=== PATIENT | female | born 1995 | race Two or more races ===

== ENCOUNTER 2024-10-08 22:11 | Emergency (ER) | payer MEDICAID, SELFPAY ==
[2024-10-08 22:15] VITALS: BMI 31.1
[2024-10-08 22:59] VITALS: BP 132/85; PULSE 114; RESP 20; TEMP 37.7; O2SAT 98
--- NOTE | 2024-10-08 23:08 | XR_ITS ---
Examination: CT abdomen with intravenous contrast CT pelvis with intravenous contrast 2-D coronal reconstructions 2-D sagittal reconstructions Date and time of exam:October 09, 2024 0135 hours INDICATIONS: Lower abdominal pain beginning 12 days ago. CTDI: vol (mGy) 9.20/7 DLP: (mGycm) 518 Technique: Multiple axial sections of the abdomen and pelvis have been obtained. 64 slice high-resolution scanner used. 3 mm axial sections have been obtained, post intravenous injection 60 cc [id number] 2-D sagittal, coronal reconstructions obtained. Low dose protocols were performed. One or more of the following dose reduction techniques were used; automated exposure control, adjustment of the mA and/or KV according to patient size, use of iterative reconstruction technique. Findings: Severe diffuse fatty infiltration throughout the liver Left adrenal nodule 36 mm No pancreatic mass No gallstones No bowel obstruction Appendix is mildly thickened without periappendiceal inflammatory change Anteverted uterus Tubular structure in the left abdomen 4 by 2 cm which could represent pyosalpinx versus abscess Urinary bladder intact. IMPRESSION: Indeterminate left adrenal nodule, recommend MRI abdomen follow-up pre and postcontrast adrenal gland protocol Appendix is mildly thickened without periappendiceal inflammatory change Findings suspicious for left hydrosalpinx, recommend pelvic sonography follow-up
--- NOTE | 2024-10-08 23:09 | PD.EDRME ---
Rapid Medical Screening Exam RME Arrival date/time: 10/08/24 22:11 29 year old female present to ED for c/o of abd pain for 12 days I have greeted and performed a focused initial assessment of this patient. A comprehensive ED assessment and evaluation of the patient, analysis of all test results, and completion of the medical decision making process will be conducted by additional ED providers. Chief Complaint: Abdominal Pain Time Seen by Provider: 10/08/24 22:28 Vital signs: Vital Signs Temperature 99.8 F 10/08/24 22:59 Pulse Rate 114 H 10/08/24 22:59 Respiratory Rate 20 10/08/24 22:59 Blood Pressure 132/85 H 10/08/24 22:59 Pulse Oximetry (%) 98 10/08/24 22:59 Oxygen Delivery Method Room Air 10/08/24 22:59
[2024-10-08 23:41] LABS: Basophils # (Auto) 0.1 Thou/mm3 (0.0-0.2); Basophils % (Auto) 0 % (0-2.5); Eosinophils # (Auto) 0.1 Thou/mm3 (0.0-0.5); Eosinophils % (Auto) 0 % (0-10); Hematocrit 38.7 % (36.0-46.0); Hemoglobin 13.1 g/dL (12.0-16.0); Immature Granulocytes % (Auto) 0 % (0-0); Immature Granulocytes Auto 0.06 Thou/mm3 (0.00-0.00); Lymphocytes # (Auto) 2.3 Thou/mm3 (1.0-4.8); Lymphocytes % (Auto) 12 % (10-50); Mean Corpuscular HGB Conc 33.9 g/dl (31.0-37.0); Mean Corpuscular Volume 92 fL (80-100); Monocytes # (Auto) 1.1 Thou/mm3 (0.0-0.8); Monocytes % (Auto) 6 % (0-12); Neutrophils # (Auto) 15.9 Thou/mm3 (1.8-7.7); Neutrophils % (Auto) 82 % (37-80); Nucleated Red Blood Cell % 0 /100 WBC (0); Platelet Count 303 Thou/mm3 (140-440); RDW Standard Deviation 44.4 fL (36.4-46.3); Red Blood Count 4.22 Miln/mm3 (4.00-5.20); White Blood Count 19.4 Thou/mm3 (3.6-11.0)
[2024-10-08 23:57] LABS: Lactate (Lactic Acid) 1.7 mMol/L (0.4-2.0)
[2024-10-09] LABS: Collection Type, Urine Voided
[2024-10-09 00:07] LABS: Alanine Aminotransferase 85 U/L (10-49); Albumin, Serum 5.1 gm/dL (3.5-5.0); Albumin/Globulin Ratio 1.3 (1.2-2.2); Alkaline Phosphatase 61 U/L (46-116); Anion Gap 10 (7-16); Aspartate Amino Transferase 49 U/L (0-34); BUN/Creatinine Ratio 14 Ratio (12-20); Bilirubin,Total 0.8 mg/dL (0.3-1.2); Blood Urea Nitrogen 10 mg/dL (9-23); Calcium 10.4 mg/dL (8.3-10.6); Calcium (Corrected) 10.4 mg/dL (8.5-10.1); Carbon Dioxide 25.2 mMol/L (20.0-31.0); Chloride 101 mMol/L (98-107); Creatinine (Component) 0.7 mg/dL (0.6-1.3); Globulin 3.8 gm/dL (2.3-3.5); Glucose 128 mg/dL (74-106); Lipase 34 U/L (12-53); Osmolality,Calculated 272 (275-295); Potassium 4.1 mMol/L (3.4-5.1); Sodium 136 mMol/L (136-145); Total Protein 8.9 gm/dL (5.7-8.2); eGFR > 60 See Note
[2024-10-09 00:09] LABS: HCG,Qualitative Serum Negative
[2024-10-09 00:11] LABS: Bacteria,Urine Rare; Bilirubin,Urine Negative (Negative); Blood,Urine Negative (Negative); Clarity,Urine Turbid (Clear/Hazy); Color,Urine Lt-Yellow (Lt Yel-Yel); Glucose, Urine Negative (Negative); Ketones,Urine Negative (Negative); Leukocyte Esterase,Urine Positive (Negative); Nitrite,Urine Negative (Negative); PH,Urine 6.5 (5.0-7.0); Protein,Urine Negative (Neg - Trace); RBC,Urine 2 /hpf (0-3); Specific Gravity,Urine 1.007 (1.001-1.035); Squamous Epithelial Cell,Urine 4 /hpf (0-5); Urobilinogen,Urine Negative mg/dL (0.0-1.0); WBC,Urine 35 /hpf (0-5)
--- NOTE | 2024-10-09 00:23 | PD.EDABDPN ---
ED Abdominal Pain RME/HPI General Chief Complaint: Abdominal Pain Stated complaint: ABD PAIN CONSTIPATION Time seen by provider: 10/08/24 22:28 Arrival date/time: 10/08/24 22:11 Source: patient Mode of arrival: ambulatory Limitations: no limitations RME / HPI RME / HPI narrative: 10/08/24 22:11 29 year old female present to ED for c/o of abd pain for 12 days I have greeted and performed a focused initial assessment of this patient. A comprehensive ED assessment and evaluation of the patient, analysis of all test results, and completion of the medical decision making process will be conducted by additional ED providers. Dr. Cowan?s Main ED Evaluation: 29-year-old female presents with complaints of constipation and abdominal pain. She reports no bowel movements or flatulence for approximately 12 days. Three weeks ago, she experienced sharp right-sided abdominal pain that lasted throughout the weekend and resolved about a week later without intervention. For the past 3 days, she has had new left-sided abdominal pain. She also reports suprapubic discomfort during urination. She is currently 3 days late on her menstrual period, which is usually regular. She is uncertain if is a possibility. No history of heavy lifting. She denies lower extremity swelling. Notably, she still has her appendix. Family history is significant for diabetes mellitus in her mother. Related Data Previous Rx's ?Medication ?Instructions ?Recorded cephalexin 500 mg capsule 500 mg PO TID #21 caps 10/09/24 Allergies Allergy/AdvReac Type Severity Reaction Status Date / Time No Known Allergies Allergy Verified 10/08/24 22:20 Review of Systems Review of Systems Systems Reviewed: All systems reviewed, normal except as documented Past Medical History Past Medical History CARDIAC: Negative Cardiac Disorders RESPIRATORY: Negative Asthma GENITOURINARY: Negative Renal Disease ENDOCRINE: Negative Diabetes Mellitus Type 2 HEMATOLOGIC: Negative Sickle Cell Disease Social History SMOKING STATUS: Never smoker ED Exam Narrative Physical exam: Rectal Exam: Some left-sided fullness noted. No discharge. No cervical motion tenderness. No palpable stool in the rectal vault. Abdominal Exam: Abdomen distended. Tenderness noted in the left lower quadrant and suprapubic region, not localized to the left McBurney?s point. No rebound tenderness. No signs of cellulitis. Negative Tran?s sign. No CVA tenderness. General Limitations: Present no limitations General appearance: Present alert and in no apparent distress Head Head exam: Present atraumatic Eye Eye exam: Present normal appearance, PERRL and EOMI ENT ENT exam: Present normal exam, normal oropharynx and mucous membranes moist Neck Neck exam: Present normal inspection, full ROM and trachea midline Chest Chest inspection: Present normal inspection and symmetric chest wall rise Respiratory Respiratory exam: Present normal lung sounds bilaterally Cardiovascular Cardiovascular exam: Present regular rate, normal rhythm and normal heart sounds Extremities Exam Extremities exam: Present normal inspection and full ROM Back Exam Back exam: Present normal inspection and full ROM Neurological Exam Neurological exam: Present alert, oriented X3 and CN II-XII intact Psychiatric Psychiatric exam: Present normal affect and normal mood Skin Skin exam: Present warm, dry, intact and normal color Course Course Course Narrative: 0329 Sepsis alert initiated. Orders made at this time are congruent with ED Adult Sepsis Order List. Re-evaluation is to be completed. 0400 Sepsis reassessment performed consisting of lab review, vitals, physical exam including auscultation of heart, lungs, and visual evaluation of capillary refills, mucosal membranes and extremities. Quality Measures Current suspected stage: sepsis Possible source: unknown Blood cultures ordered: yes Antibiotic ordered: Yes Pertinent labs: 10/08/24 10/09/24 23:30 04:39 Lactic Acid 1.7 mMol/L 0.7 mMol/L (0.4-2.0) (0.4-2.0) sepsis Orders Category Date Time Status CT Screening NOW Care 10/08/24 23:08 Active IV [Insert IV] NOW Care 10/09/24 00:[address] abdomen pelvis w con Stat Exams 10/08/24 23:08 Taken US pelvic complete Stat Exams 10/09/24 02:09 Taken Blood Culture (Lab) Stat Lab 10/08/24 23:50 Received CBC Stat Lab 10/08/24 23:30 Completed CMP [Comprehensive Metabolic Panel] Stat Lab 10/08/24 23:30 Completed HCG,Qualitative Serum Stat Lab 10/08/24 23:30 Completed Lactic Acid [Lactate (Lactic Acid)] Stat Lab 10/08/24 23:30 Completed Lactic Acid [Lactate (Lactic Acid)] Stat Lab 10/09/24 04:39 Completed Lipase Stat Lab 10/08/24 23:30 Completed UA [Urinalysis] Stat Lab 10/08/24 23:52 Completed Piper/Tazo 3.375 gm Premix [Zosyn] Med 10/08/24 23:51 Discontinued 3.375 gm in 50 ml IV X1 Sodium Chloride 0.9% 1000 ml [Ns] 1,000 ml Med 10/09/24 01:05 Discontinued IV 999 mls/hr cefTRIAXone/D5w 1gm IV premix [Rocephin/D5w 1gm IV Med 10/09/24 04:17 Discontinued premix] 1 gm in 50 ml IV X1 Vital Signs Vital signs: Vital Signs Temperature 99.8 F 10/08/24 22:59 Pulse Rate 114 H 10/08/24 22:59 Respiratory Rate 20 10/08/24 22:59 Blood Pressure 132/85 H 10/08/24 22:59 Pulse Oximetry (%) 98 10/08/24 22:59 Oxygen Delivery Method Room Air 10/08/24 22:59 Abdominal Pain MDM MDM Narrative MDM Narrative:: 29-year-old female presents with 12-day history of constipation and new-onset left lower abdominal pain with suprapubic discomfort on urination. She reports a prior episode of right-sided abdominal pain 3 weeks ago that resolved a week later. She is 3 days late on her menstrual cycle, which is typically regular, and status is unknown. Differential includes constipation-related abdominal discomfort, SBO, ileus, UTI, pyelonephritis, infected stone, tumor. 0418 -- Patient denies discharge and declines a pelvic exam. Will proceed with treatment for UTI. Plan to repeat lactic acid. Patient offered admission but states she would like to go home and will return in 24 hours for re-check. Waiting for pelvis ultrasound results. Scribe Attestation: Tay Redding, am scribing for and in the presence of Dr. Cowan. Provider Notation: Although this document has been carefully reviewed, there may still be some phonetic and other typographical errors. These errors are purely grammatical due to imperfections in the software program and should not be construed in any way to compromise the substance of the patient's medical care during this visit. Patient data External records reviewed:: [facility] previous records Clinical information provided by:: patient Social determinants that could affect healthcare access:: none Patient has the following chronic illnesses:: n/a How is presenting disease/condition affected by chronic disease/condition?: no chronic disease Evaluation data The following diagnostics were reviewed and interpreted by me:: lab results and radiology exam(s) Lab and/or radiology exams considered but not ordered:: n/a Interpretation Summary: I personally reviewed the radiology data and agree with the radiologist's interpretation. CT scan of the abdomen and pelvis with intravenous contrast October 09, 2024 0154 hours Clinical History: Lower abd pain for 12 days No prior study is available for comparison. Findings: The lung bases are clear. Fatty infiltration of the liver is noted. There is a 3 x 1.7 cm left adrenal indeterminate nodule. The gallbladder, pancreas, spleen and kidneys are unremarkable. Moderate amount of fecal material is present in the colon. There are a few fluid filled small bowel loops. No evidence of small bowel dilatation. The urinary bladder is unremarkable. There are tubular cystic structures in the adnexae bilaterally with surrounding fat stranding and possible left tuboovarian abscess measuring 4 x 2 cm. There is reactive wall thickening of the sigmoid and tip of appendix.There is no free air. There is a trace free fluid in the pelvis. There are multiple prominent mesenteric and retroperitoneal lymph nodes. The osseous structures are unremarkable. Impression: Findings suggestive of pelvic inflammatory disease with bilateral hydro/pyosalpinx and possible left tuboovarian abscess. Recommend further evaluation. Reactive sigmoid colitis and thickening of the tip of the appendix. Recommend clinical correlation and follow-up. Left indeterminate adrenal nodule Medications / Prescriptions Medications or Prescriptions considered but not ordered:: n/a Medication administrations:: Medication Administration History Discontinued Medications Piperacillin/Tazobactam/Dextrose (Zosyn) 3.375 gm in 50 mls @ 100 mls/hr IV X1 ONE Stop: 10/09/24 00:20 Last Infusion: 10/09/24 01:16 Dose: Infused Documented By: Admin: 10/09/24 00:43 Dose: 100 mls/hr Documented By: CVL Sodium Chloride (Ns) 1,000 mls @ 999 mls/hr IV .Q1H1M ONE Stop: 10/09/24 02:05 Last Infusion: 10/09/24 02:25 Dose: Infused Documented By: Admin: 10/09/24 01:17 Dose: 999 mls/hr Documented By: CVL Ceftriaxone Sodium/Dextrose (Rocephin/D5w 1gm Iv Premix) 1 gm in 50 mls @ 100 mls/hr IV X1 ONE Stop: 10/09/24 04:46 Last Infusion: 10/09/24 05:04 Dose: Infused Documented By: Admin: 10/09/24 04:33 Dose: 100 mls/hr Documented By: LB as above Consultations Consultation(s) initiated? (list below): No Diagnosis Differential diagnosis abdominal pain: other (see MDM) Most likely diagnosis given after review of the tests above:: see clinical impression below Admission Indicated Admission indicated?: indicated Explain why admission is indicated or not indicated:: see MDM Admission Request Was there a request for admission?: No Disposition Plan Disposition Plan: Discharge Discharge Attestation Discharge Attestation: The patient and all family members were given an opportunity to ask questions and understood the discharge instructions. Discharge instructions specifically effects, indications for sooner follow up or return to the emergency department, and the expected course of current diagnosis. Patient condition: Stable Critical Care Time Critical Care Time Critical Care Time: Yes Total Critical Care Time (min.): 45 Attestation: The high probability of sudden, clinically significant deterioration in the patient?s condition required the highest level of my preparedness to intervene urgently. ? The services I provided to this patient were to treat and/or prevent clinically significant deterioration. Services included the following: chart data review, reviewing nursing notes and/or old charts, documentation time, benefits sales consultant collaboration regarding findings and treatment options, medication orders and management, direct patient care, vital sign assessments and ordering, interpreting and reviewing diagnostic studies and lab tests. ? Aggregate critical care time includes only time during which I was engaged in work directly related to the patient?s care, as described above, whether at bedside or elsewhere in the Emergency Department. It did not include time spent performing other reported procedures or the services of residents, students, nurses or physician assistants. Discharge Plan Plan Patient Disposition: HOME (Self Care) Patient condition on transfer: Stable Prescriptions/Referrals Prescriptions/Med Rec: New cephalexin 500 mg capsule 500 mg PO TID Qty: 21 0RF Referrals: No Primary/Family,Physician [Primary Care Provider] - In 1 week Problem List Clinical Impression: Sepsis, UTI (urinary tract infection) Patient/Caregiver Discharge Instructions Education Materials: Urinary Tract Infections in Women Additional Instructions: 1. Take antibiotics as prescribed. If you are on control pills you will have to use alternate form of protection for the next 30 days. 2. We have offered you admission but you would like to go home. 3 . Return to the emergency department in 24 hours for recheck to see how you are doing. Return sooner before your recheck if you are having fevers, increasing pain, you cannot tolerate liquids, or any other concerns. 4. You can take [id number] Tylenol 650 mg 3 times a day and/or Motrin 600 mg 3 times a day with food. Print Language: [place] Stand Alone Forms: Kendra Award Info., Patient Portal Info Letter
[2024-10-09] MEDS: PIPER/TAZO 3.375 GM PREMIX 3.375 GM/50 ML BAG IV (00:43)
[2024-10-09] MEDS: SODIUM CHLORIDE 0.9% 1000 ML 1,000 ML 999 ML IV (01:17)
--- NOTE | 2024-10-09 02:09 | XR_ITS ---
Examination: Pelvic ultrasound, transabdominal, complete Technique: Transabdominal ultrasound of the pelvis performed using grayscale imaging Date and time of exam: October 09, 2024 at 0259 hours INDICATION: Left pelvic pain beginning 4 days ago FINDINGS: Uterus 11.3 cm endometrial stripe 0.5 cm No uterine mass or intrauterine gestation Right ovary 3.4 cm arterial flow Left ovary 4.1 cm arterial flow 17 mm follicular cyst IMPRESSION: No uterine mass or intrauterine gestation
[2024-10-09 03:12] VITALS: BP 118/75; PULSE 84; RESP 18; TEMP 36.8; O2SAT 97
--- NOTE | 2024-10-09 03:12 | PRELIM_ITS ---
CT scan of the abdomen and pelvis with intravenous contrast (axial sections with sagittal and coronal reformats) October 09, 2024 0154 hours Clinical History: Lower abd pain for 12 days No prior study is available for comparison. Findings: The lung bases are clear. Fatty infiltration of the liver is noted. There is a 3 x 1.7 cm left adrenal indeterminate nodule. The gallbladder, pancreas, spleen and kidneys are unremarkable. Moderate amount of fecal material is present in the colon. There are a few fluid filled small bowel loops. No evidence of small bowel dilatation. The urinary bladder is unremarkable. There are tubular cystic structures in the adnexae bilaterally with surrounding fat stranding and possible left tuboovarian abscess measuring 4 x 2 cm. There is reactive wall thickening of the sigmoid and tip of appendix.There is no free air. There is a trace free fluid in the pelvis. There are multiple prominent mesenteric and retroperitoneal lymph nodes. The osseous structures are unremarkable. Impression: Findings suggestive of pelvic inflammatory disease with bilateral hydro/pyosalpinx and possible left tuboovarian abscess. Recommend further evaluation. Reactive sigmoid colitis and thickening of the tip of the appendix. Recommend clinical correlation and follow-up. Left indeterminate adrenal nodule Report Electronically Signed By: Immanuel Navarrete 10/09/2024 3:11:32 AM [EST]
[2024-10-09 04:31] VITALS: BP 122/72; PULSE 80; RESP 18; TEMP 36.9; O2SAT 98
[2024-10-09] MEDS: cefTRIAXone/D5w 1gm IV premix 1 GM/50 ML BAG IV (04:33)
[2024-10-09 04:42] LABS: Lactate (Lactic Acid) 0.7 mMol/L (0.4-2.0)
[2024-10-09 05:53] VITALS: BP 130/83; PULSE 78; RESP 18; TEMP 36.9; O2SAT 98
== END 2024-10-09 05:58 | disposition home or self-care (01) ==
PROVIDERS: Physician Assistant; Emergency Provider Emergency Medicine
DX: N39.0 Urinary tract infection, site not specified (principal); K52.9 Noninfective gastroenteritis and colitis, unspecified; K38.8 Other specified diseases of appendix
CPT/HCPCS: 36415; 74177; 76856; 80053; 81001; 83605; 83690; 84703; 85025; 87040; 96361; 96365; 96367; 99285; A4649; J0696; J2543; J7030; Q9967